=== PATIENT | male | born 1940 | race Caucasian/White ===

== ENCOUNTER → 2023-11-26 10:38 | Outpatient (REF) | payer MEDICARE, BC, SELFPAY ==
[2023-11-26 14:36] LABS: PSA, Total - Diagnostic < 0.06 ng/ml (0.0-4.0)
== END ==
LOC: HWLAB 10:38
PROVIDERS: ATTENDING PHYSICIAN Specialist; FAMILY PHYSICIAN Family Medicine
DX: C61 Malignant neoplasm of prostate (principal)
CPT/HCPCS: 36415; 84153

== ENCOUNTER → 2023-12-17 06:28 | Day surgery (SDC) | payer MEDICARE, BC, SELFPAY | LOC: GI 06:28 | PROVIDERS: ATTENDING PHYSICIAN Surgery | DX: Z86.010 Personal history of colon polyps (principal); Z12.11 Encounter for screening for malignant neoplasm of colon; K57.30 Diverticulosis of large intestine without perforation or abscess without bleeding; D12.2 Benign neoplasm of ascending colon; D12.3 Benign neoplasm of transverse colon | CPT/HCPCS: 45385; 88305 ==

== ENCOUNTER 2023-12-18 13:59 | Emergency (ER) | payer MEDICARE, BC, SELFPAY ==
[2023-12-18 14:08] VITALS: BMI 25.2
[2023-12-18 14:12] VITALS: BP 145/84
--- NOTE | 2023-12-18 14:15 | ED.GENMED ---
History of Present Illness
<Marybeth Chavez STUDENT DEVELOPMENT ADVISOR - Last Filed: 12/18/23 15:48>
General
Chief Complaint: Fainting/Passed Out
Source: patient and ambulance crew
Exam Limitations: none
Time Seen by Provider: 12/18/23 14:15
Nursing documentation reviewed up to this point in time: agreed with
Travel History
Have you had any contact with someone who has COVID-19?: No
Do you have any symptoms of coronavirus? Fever > 100 degrees, chills, cough, shortness of breath, sore throat, loss of taste or smell, muscle aches, or headache?: No
History of Present Illness
History of Present Illness:
83-year-old male with history of prostate cancer, prostatectomy, appendectomy, family hx colon CA, Had colonoscopy yesterday.
Ate breakfast, was at the store with his , standing at the counter and next thing he knew he was on the floor. He did not feel himself fainting, 'It was like the lights went out.' Denies weakness, lightheadedness, diaphoresis, visual changes no
new medications, he takes no cardiac medications. No cardiac history.
Has laceration right forehead, small laceration back of head. Denies neck pain, has pain at the sites, no general headache. Denies neck or back pain, extremity pain.
states she was standing with him at the counter and she turned to say something and he just dropped to the floor.' She states his eyes were open but not focusing for a few seconds but then he 'came around.' There was no seizure activity.
States pt was working out in the yard earlier today. Ate bagel for breakfast, then had some hummus with crackers.
Past History
<Marybeth Chavez, STUDENT DEVELOPMENT ADVISOR - Last Filed: 12/18/23 15:48>
Past History
ED Past Medical History: Cancer (Prostate)
ED Past Surgical History: Appendectomy and Urological (prostatectomy)
Social History
Tobacco: Non-smoker
Personal:
Living: with family
Review of Systems
<Marybeth Chavez, STUDENT DEVELOPMENT ADVISOR - Last Filed: 12/18/23 15:48>
Review of Systems
Allergies reviewed?: Yes
All Other Systems: ROS reviewed and negative except as documented in HPI and ROS
Constitutional: Denies fever or fatigue
Respiratory: Denies trouble breathing
Cardiac: Reports syncope; Denies chest pain, diaphoresis or palpitations
ABD/GI: Denies abdominal pain, nausea or diarrhea
: Denies dysuria, frequency, incontinence or urgency
Musculoskeletal: Reports no symptoms; Denies neck pain or back pain
Skin: Reports other
Neurological: Denies dizzy, headache, weakness or numbness
Phy Exam
<Marybeth Chavez, STUDENT DEVELOPMENT ADVISOR - Last Filed: 12/18/23 15:48>
Physical Exam
Physical Exam:
GENERAL: No acute distress. A&Ox3.
CONSTITUTIONAL: Afebrile.
EYES: PERRL, conjunctivae normal
Head: Laceration right forehead, small laceration occiput, no bleeding
Neck: Supple
ENMT: moist mucus membranes, Pharynx nl
RESPIRATORY: Regular respirations, nonlabored, lungs clear.
CARDIOVASCULAR: Regular rate and rhythm, no murmurs, no rubs.
GI: Soft, nontender, normal BS
MUSCULOSKELETAL: No spinal bony tenderness. Extremities nontenderMoves with ease. Well perfused.
SKIN: Warm, dry, pink
PSYCH: Normal mood and affect. Well kept, interactive and appropriate
NEUROLOGIC: Awake, alert and oriented. No focal neurological deficits speech clear. Cranial nerves II through XII intact. Strength equal throughout
Course
<Marybeth Chavez, STUDENT DEVELOPMENT ADVISOR - Last Filed: 12/18/23 15:48>
Orders/Labs/Results
Orders:
Orders
12/18/23 14:05
EKG [Electrocardiogram (*1)] Urgent
Reason for Study: Syncope
12/18/23 14:06
EKG- Treatment ONCE
12/18/23 14:27
CT Cervical Spine W/o Iv Contr Urgent
Comment: no neuro deficits
Reason For Exam: fall, head injury not anticoagulated
CT Head W/o Iv Contrast Urgent
Comment:
Reason For Exam: fall,head injury, LOC
12/18/23 14:29
0.9% Sodium Chloride 1000 ml [Nss] 1,000 ml IV BOLUS
12/18/23 14:30
Complete Blood Count/With Diff Urgent
12/18/23 14:32
Lidocaine/Epinephrine/Tetracai [Let Topical Anesthetic Gel] 3 ml TOPICAL NOW STA
12/18/23 14:33
Comprehensive Metabolic Panel Urgent
Abnormal Lab Results
12/18/23 12/18/23
14:30 14:33
MCH 31.7 H pg
(27.0-31.0)
Lymphocytes % 16.8 L %
(20.5-51.1)
Chloride 108 H mmol/L
(98-107)
Glucose 130 H mg/dl
(70-99)
12/18/23 14:30
12/18/23 14:33
Vital Signs
Initial and Last Documented VS:
Initial Vital Signs
Temp Pulse Resp BP Pulse Ox
97.5 F 78 16 145/84 96
12/18/23 14:12 12/18/23 14:12 12/18/23 14:12 12/18/23 14:12 12/18/23 14:12
Last Documented Vital Signs
Temp Pulse Resp BP Pulse Ox
97.5 F 78 16 145/84 96
12/18/23 14:12 12/18/23 14:12 12/18/23 14:12 12/18/23 14:12 12/18/23 14:12
<Bryce Boaz Reyna, DO - Last Filed: 12/18/23 15:26>
Orders/Labs/Results
Orders:
Orders
12/18/23 14:05
EKG [Electrocardiogram (*1)] Urgent
Reason for Study: Syncope
12/18/23 14:06
EKG- Treatment ONCE
12/18/23 14:27
CT Cervical Spine W/o Iv Contr Urgent
Comment: no neuro deficits
Reason For Exam: fall, head injury not anticoagulated
CT Head W/o Iv Contrast Urgent
Comment:
Reason For Exam: fall,head injury, LOC
12/18/23 14:29
0.9% Sodium Chloride 1000 ml [Nss] 1,000 ml IV BOLUS
12/18/23 14:30
Complete Blood Count/With Diff Urgent
12/18/23 14:32
Lidocaine/Epinephrine/Tetracai [Let Topical Anesthetic Gel] 3 ml TOPICAL NOW STA
12/18/23 14:33
Comprehensive Metabolic Panel Urgent
Abnormal Lab Results
12/18/23 12/18/23
14:30 14:33
MCH 31.7 H pg
(27.0-31.0)
Lymphocytes % 16.8 L %
(20.5-51.1)
Chloride 108 H mmol/L
(98-107)
Glucose 130 H mg/dl
(70-99)
12/18/23 14:30
12/18/23 14:33
Vital Signs
Initial and Last Documented VS:
Initial Vital Signs
Temp Pulse Resp BP Pulse Ox
97.5 F 78 16 145/84 96
12/18/23 14:12 12/18/23 14:12 12/18/23 14:12 12/18/23 14:12 12/18/23 14:12
Last Documented Vital Signs
Temp Pulse Resp BP Pulse Ox
97.5 F 78 16 145/84 96
12/18/23 14:12 12/18/23 14:12 12/18/23 14:12 12/18/23 14:12 12/18/23 14:12
Procedures
<Marybeth Chavez, STUDENT DEVELOPMENT ADVISOR - Last Filed: 12/18/23 15:48>
Laceration Closure
Right Forehead:
Status of Wound: clean
Size of Wound in cm: 2
Description of Wound Edges: flap-well vascularized
Preparation: cleaned with saline
Anesthesia: Topical-LET
Revision/Debridement: routine- no revision
Type of Closure: Dermabond-skin glue (reinforced with skin adhesive and steristrips)
<Marybeth Chavez, STUDENT DEVELOPMENT ADVISOR - Last Filed: 12/18/23 15:48>
MDM/Problems Addressed
Differential Diagnosis Includes:
Dehydration, hypoglycemia, vaso vagal, exertional syncope, dysrhythmia
MDM/Problems Addressed:
83-year-old male with history of prostate cancer, prostatectomy, appendectomy, family hx colon CA, Had colonoscopy yesterday.
Ate breakfast, was at the store with his , standing at the counter and next thing he knew he was on the floor. He did not feel himself fainting, 'It was like the lights went out.' Denies weakness, lightheadedness, diaphoresis, visual changes no
new medications, he takes no cardiac medications. No cardiac history.
Has laceration right forehead, small laceration back of head. Denies neck pain, has pain at the sites, no general headache. Denies neck or back pain, extremity pain.
states she was standing with him at the counter and she turned to say something and he just dropped to the floor.' She states his eyes were open but not focusing for a few seconds but then he 'came around.' There was no seizure activity.
States pt was working out in the yard earlier today. Ate bagel for breakfast, then had some hummus with crackers.
Neuro exam is unremarkable
EKG NSR
12/18/2023 1510 PM
CBC normal
CMP normal glucose [address]: Radiology report read: No acute abnormality
Cervical spine CT no acute abnormality
12/18/2023 1532 PM
Reported laceration edges approximated with wound glue, skin adhesive and Steri-Strips applied.
Tdap updated
Case discussed with Dr. Orellana who evaluated patient who agrees pt OK for discharge and can f/u with cardiology.
Pt ambulated out with normal gait at discharge
<Marybeth Chavez, STUDENT DEVELOPMENT ADVISOR - Last Filed: 12/18/23 15:48>
*Critical Care Note
Total Time (30-74mins, 75-104mins- exclusive of procedures): Not Applicable
ED Attending Note
<Marybeth Chavez, STUDENT DEVELOPMENT ADVISOR - Last Filed: 12/18/23 15:48>
-
Portions of this chart may have been created with voice recognition software.� Occasional wrong word or��sound alike� substitutions may have occurred due to the inherent limitations of voice recognition software.
<Bryce Orellana DO - Last Filed: 12/18/23 15:26>
ED Attending Note
Patient seen and examined by attending physician: Yes
I performed the substantive portion of visit, reviewed & personally made and approve the management plan that is documented in note by myself or RODRIGO.: Yes
I performed a history and physical exam of patient and discussed management with resident, I reviewed resident's note and agree with documented findings and plan of care.: Yes
ED Attending Note:
I evaluated the patient at bedside. The patient has no symptoms currently. ED workup unremarkable. Offered and considered keeping for further observation however the patient has no symptoms and wants to go home which I feel is reasonable. I
encouraged him to follow-up with cardiology. He is in a sinus rhythm with unremarkable EKG currently.
Discharge Plan
Departure
Patient Disposition: Home (Routine Discharge)
Date of Disposition: 12/18/23
Time of Disposition: 15:35
Patient with high blood pressure during this ER visit?: No
Condition: Good
Discharge Problem:
Episode of syncope, Forehead laceration, Abrasion of scalp
Instructions: Head Injury in Adults (DC), Syncope (Fainting) (DC), Steri-Strips over Glued Wound
Prescriptions:
No Action
aspirin [Lo-Dose Aspirin] 81 MG tablet,delayed release (DR/EC)
81 mg PO DAILY
Patient Comments:
Jackie
ranitidine HCl [Zantac] 150 MG tablet
150 mg PO PRN (Reason: reflux)
etodolac 400 MG tablet
400 mg PO BID
coenzyme Q10 [Co Q-10] 100 MG capsule
100 mg PO BID
Hardeep Red [place] 3
300 mg PO DAILY
Move Free Advanced
1 tab PO BID
Referrals:
Dung Fleming MD [Active] - Next open appointment
Luci Thompson DO [Family Provider] -
Activity Restrictions/Additional Instructions:
As we discussed, nothing worrisome in your workup here today.
Call the electronic tech office tomorrow morning and make next available appointment.
Return here immediately for chest pain, lightheadedness, feeling faint, vomiting, headache that gets worse despite Tylenol or feeling sicker in any way.
You may briefly wet the forehead in the shower. Just don't rub it or apply any ointments. Pat strips dry afterwards.
It takes about 7 days for this wound to heal, if the strips fall off before then, it's ok, otherwise removed them in 7 days.
You may see the wound for up to a year before it fades to the color of your skin. Avoid sunburn or the scar will be darker.
Interventions
Interventions:
*Risk Screen - Suicide Last Done: 12/18/23 14:13
*General Assessment Last Done: 12/18/23 14:13
*Neglect/Abuse Screening Last Done: 12/18/23 14:13
*ED COVID-19 Vaccine History Last Done: 12/18/23 14:13
ED- Cardiac Assessment Last Done: 12/18/23 14:16
ED- Neurological Assessment Last Done: 12/18/23 14:16
[2023-12-18 14:41] LABS: % Basophils 0.1 % (0-2); % Eosinophils 1.4 % (0-6); % Immature Granulocytes 0.4 % (0-0.5); % Lymphocytes 16.8 % (20.5-51.1); % Monocytes 7.7 % (1.7-9.3); % Neutrophils 73.6 % (42.2-75.2); Absolute Eosinophils 0.1 10^3/uL (0-0.7); Absolute Lymphocytes 1.2 10^3/uL (1.2-3.4); Absolute Monocytes 0.6 10^3/uL (0.1-0.6); Absolute Neutrophils 5.2 10^3/uL (1.4-6.5); Hematocrit 42.7 % (39.0-52.0); Hemoglobin 15.1 g/dL (13.0-18.0); Mean Corp Hgb Conc. 35.4 g/dL (33.0-37.0); Mean Corpuscular Hgb 31.7 pg (27.0-31.0); Mean Corpuscular Volume 89.5 fL (80.0-94.0); Mean Platelet Volume 9.9 fL (7.4-10.4); Nucleated Red Blood Cells % 0 % (-); Platelet Count 196 10^3/uL (130-400); Red Blood Cell Count 4.77 10^6/uL (4.70-6.10); Red Cell Dist. Width 13.2 % (11.5-14.5); White Blood Cell Count 7.1 10^3/uL (4.8-10.8)
[2023-12-18 15:00] LABS: ALT (SGPT) 18 U/L (0-50); AST (SGOT) 25 U/L (17-59); Albumin 4.2 g/dl (3.5-5.0); Alkaline Phosphatase 90 U/L (38-126); Blood Urea Nitrogen 20 mg/dl (9-20); Calcium 8.7 mg/dl (8.4-10.2); Carbon Dioxide 24 mmol/L (22-30); Chloride 108 mmol/L (98-107); Estimated Creatinine Clearance 61 ml/min; Glucose 130 mg/dl (70-99); Potassium 3.7 mmol/L (3.5-5.1); Sodium 137 mmol/L (135-145); Total Bilirubin 0.7 mg/dl (0.2-1.3); Total Protein 6.6 g/dl (6.3-8.2); eGFR > 60.00
[2023-12-18] MEDS: LET TOPICAL ANESTHETIC GEL 3 ML TOPICAL (15:10)
[2023-12-18] MEDS: NSS 1000 IV (15:13)
[2023-12-18 16:08] VITALS: BP 145/87
== END 2023-12-18 16:09 | disposition home or self-care (01) ==
LOC: EMR 13:59
PROVIDERS: Registered Nurse; EMERGENCY PHYSICIAN Emergency Medicine; FAMILY PHYSICIAN Family Medicine
DX: R55 Syncope and collapse (principal); S01.81XA Laceration without foreign body of other part of head, initial encounter; W19.XXXA Unspecified fall, initial encounter
CPT/HCPCS: 99285; 96360; 12011; 70450; 72125; 80053; 85025; 93005

== ENCOUNTER → 2024-01-16 07:11 | Outpatient (REF) | payer MEDICARE, BC, SELFPAY | LOC: DHCBC HW 07:11 | PROVIDERS: ATTENDING PHYSICIAN Internal Medicine Cardiovascular Disease; FAMILY PHYSICIAN Family Medicine | DX: R55 Syncope and collapse (principal) | CPT/HCPCS: 93306 ==

== ENCOUNTER → 2024-03-06 09:13 | Outpatient (REF) | payer MEDICARE, BC, SELFPAY ==
[2024-03-06 11:30] LABS: Total Thyroxine 5.95 ug/dl (5.5-11.0)
[2024-03-06 11:43] LABS: TSH 1.14 uIU/ml (0.47-4.68)
[2024-03-06 12:18] LABS: Folate > 20.0 ng/ml (2.76-20); Vitamin B12 548 pg/ml (239-931)
== END ==
LOC: REG 09:13
PROVIDERS: ATTENDING PHYSICIAN Specialist; FAMILY PHYSICIAN Family Medicine
DX: E03.9 Hypothyroidism, unspecified (principal); D51.8 Other vitamin B12 deficiency anemias
CPT/HCPCS: 36415; 82607; 82746; 84436; 84443

== ENCOUNTER 2024-03-31 12:03 | Outpatient (RCR) | payer MEDICARE, BC, SELFPAY | END 2024-03-31 23:59 | disposition home or self-care (01) | LOC: RPT 12:03 | PROVIDERS: ATTENDING PHYSICIAN Urology; FAMILY PHYSICIAN Family Medicine | DX: N39.42 Incontinence without sensory awareness (principal); N39.41 Urge incontinence; Z73.6 Limitation of activities due to disability; M62.81 Muscle weakness (generalized); R27.8 Other lack of coordination; Z85.46 Personal history of malignant neoplasm of prostate; Z90.79 Acquired absence of other genital organ(s) | CPT/HCPCS: 97112; 97162; 97530 ==

== ENCOUNTER → 2024-04-08 09:53 | Day surgery (SDC) | payer MEDICARE, BC, SELFPAY ==
--- NOTE | 2024-04-08 15:39 | ITS.CL.IMPLP ---
Ride [employer]ic - Implant Loop
Implant Loop
Procedure Report:
Date of Procedure: April 08, 2024.
Procedure: Insertable Loop Recorder Implant.
Indication: Recurrent unexplained syncope with negative outpatient 14-day hospital monitor and an unremarkable echocardiogram.
Performing physician: Monroe Page MD, [facility].
[employer]; Reveal LINQII; Model# [id number]; Serial# [id number].
Technique: The patient was prepped and draped in the usual fashion. A time-out was performed.� No intravenous sedation was administered. Local anesthetic was applied to the left pre-pectoral subcutaneous tissue. Using the insertion kit an incision
was made left of the midline in the fourth intercostal space and the device was implanted subcutaneously and directed towards the nipple. Hemostasis was excellent. The skin was closed with steri-strips. The estimated blood loss was less than 1 ml.
There were no complications. No fluoroscopy. R waves measured 0.36 mV and P waves were visible.
Final Programming: Detections: Afib, tachy at 160 bpm, rachelle at 30 bpm, pause at 3 sec.
Conclusion: Uncomplicated insertable loop implant.
Recommendation: Routine post-insertable loop care. The device is MRI conditional without a waiting period and up to 3 Swathi.
cc: Luci Thompson DO.
== END | disposition home or self-care (01) ==
LOC: CATH 09:53
PROVIDERS: ATTENDING PHYSICIAN Internal Medicine Cardiovascular Disease; FAMILY PHYSICIAN Family Medicine
DX: Z09 Encounter for follow-up examination after completed treatment for conditions other than malignant neoplasm (principal); R55 Syncope and collapse; E78.2 Mixed hyperlipidemia; Z85.46 Personal history of malignant neoplasm of prostate; Z85.820 Personal history of malignant melanoma of skin; Z85.828 Personal history of other malignant neoplasm of skin; Z87.891 Personal history of nicotine dependence; Z79.82 Long term (current) use of aspirin
CPT/HCPCS: 33285; C1764

== ENCOUNTER 2024-04-28 10:50 | Outpatient (RCR) | payer MEDICARE, BC, SELFPAY | END 2024-04-28 23:59 | disposition home or self-care (01) | LOC: RPT 10:50 | PROVIDERS: ATTENDING PHYSICIAN Urology; FAMILY PHYSICIAN Family Medicine | DX: N39.42 Incontinence without sensory awareness (principal); N39.41 Urge incontinence; Z73.6 Limitation of activities due to disability; M62.81 Muscle weakness (generalized); R27.8 Other lack of coordination | CPT/HCPCS: 97112; 97530 ==

== ENCOUNTER 2024-06-04 08:50 | Outpatient (RCR) | payer MEDICARE, BC, SELFPAY | END 2024-06-04 12:24 | disposition home or self-care (01) | LOC: RPT 08:50 | PROVIDERS: ATTENDING PHYSICIAN Urology; FAMILY PHYSICIAN Family Medicine | DX: N39.42 Incontinence without sensory awareness (principal); N39.41 Urge incontinence; Z73.6 Limitation of activities due to disability; M62.81 Muscle weakness (generalized); R27.8 Other lack of coordination | CPT/HCPCS: 97530 ==

== ENCOUNTER → 2024-07-14 09:08 | Outpatient (REF) | payer MEDICARE, BC, SELFPAY | LOC: RCS 09:08 | PROVIDERS: ATTENDING PHYSICIAN Internal Medicine Cardiovascular Disease; FAMILY PHYSICIAN Family Medicine | DX: R68.89 Other general symptoms and signs (principal); R55 Syncope and collapse | CPT/HCPCS: 93017 ==

== ENCOUNTER → 2024-11-17 09:51 | Outpatient (REF) | payer MEDICARE, BC, SELFPAY ==
[2024-11-18 02:12] LABS: PSA, Total - Diagnostic < 0.06 ng/ml (0.0-4.0)
== END ==
LOC: HWLAB 09:51
PROVIDERS: ATTENDING PHYSICIAN Specialist; FAMILY PHYSICIAN Family Medicine
DX: C61 Malignant neoplasm of prostate (principal)
CPT/HCPCS: 36415; 84153